=== PATIENT | male | born 1995 | race Two or more races ===

== ENCOUNTER 2017-06-20 16:54 | Emergency (ER) | payer SELFPAY ==
[~2017-06-20] VITALS: Ht 180.3 cm; Wt 68.5 kg
[2017-06-20] MEDS ORDERED: HYDROmorphone 1 MG/ML, 1ML ONE ×4 (16:59→18:53)
[2017-06-20] MEDS ORDERED: ONDANSETRON 2MG/ML, 2ML ONE (16:59)
[2017-06-20] MEDS ORDERED: CEFAZOLIN PMX 1GM/50ML 50 ML ONE (17:01)
[2017-06-20] MEDS: HYDROmorphone 1 MG/ML, 1ML IVPush PRN ×2 (17:02→17:13)
[2017-06-20] MEDS ORDERED: DIPH,PERTUSS(ACELL),TET VAC/PF 0.5 ML IM-VACC ONE ×2 (17:15→17:30)
[2017-06-20] MEDS ORDERED: KETAMINE 10 MG/ML, 20ML ONE (17:29)
[2017-06-20] MEDS ORDERED: CEFAZOLIN PMX 1GM/50ML 50 ML IVPB ONE (17:30)
[2017-06-20] MEDS ORDERED: SODIUM CHLORIDE 0.9% 1,000ML IVBOLUS ONE (17:30)
[2017-06-20] MEDS ORDERED: KETAMINE 100 MG/ML, 5ML IV ONE ×2 (17:30→21:00)
[2017-06-20] MEDS ORDERED: HYDROmorphone 1 MG/ML, 1ML IV ONE ×3 (17:30→19:00)
[2017-06-20 19:22] VITALS: BP 132/84
== END 2017-06-20 21:23 | disposition short-term general hospital (02) ==
LOC: MERGE 16:54 → ED 17:18
DX: T23.201A Burn of second degree of right hand, unspecified site, initial encounter (principal); T23.292A Burn of second degree of multiple sites of left wrist and hand, initial encounter; T31.0 Burns involving less than 10% of body surface; X08.8XXA Exposure to other specified smoke, fire and flames, initial encounter; Y93.89 Activity, other specified; Y92.89 Other specified places as the place of occurrence of the external cause; Y99.8 Other external cause status
CPT/HCPCS: 71010; 90471; 90715; 96365; 96375; 96376; 99291; J0690; J1170; J7030